=== PATIENT | female | born 2000 | race Caucasian/White ===

== ENCOUNTER → 2019-01-24 | Outpatient (CLI) | payer OTHER ==
--- NOTE | 2019-01-24 13:09 | REP ---
Right foot series: Four views. History: Mass of the right foot. Right foot pain. No comparison views. 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 This accessory ossicle measures 12 mm in greatest diameter. Overall mineralization pattern is normal. Bones, joints and soft tissues are otherwise radiographically unremarkable. 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 Otherwise negative right foot radiographs. Electronically Signed by Rocco Pringle MD 01/24/2019 01:00 P
== END ==
LOC: M LRY 12:48
PROVIDERS: ATTEND Nurse Practitioner Family
DX: Q66.81 Congenital vertical talus deformity, right foot (principal)
CPT/HCPCS: 73630; G0463

== ENCOUNTER → 2019-06-05 | Outpatient (CLI) | payer OTHER ==
[2019-06-05 17:23] LABS: BASO % 0.3 % (0.0-1.0); EOS # 0.1 10^3/uL (0.0-0.5); EOS % 0.5 % (0.0-3.0); HEMATOCRIT 35.2 % (36.0-47.0); HEMOGLOBIN 11.9 g/dl (12.0-15.5); LYMPH % 20.5 % (24.0-44.0); MEAN CORPUSCULAR HEMOGLOBIN 30.4 pg (27.0-33.0); MEAN CORPUSCULAR HGB CONC 33.8 g/dl (32.0-36.5); MONO # 0.7 10^3/uL (0.0-0.8); MONO % 7.1 % (0.0-5.0); NEUTROPHILS # 6.9 10^3/uL (1.5-8.5); NEUTROPHILS % 70.5 % (36.0-66.0); PLATELET COUNT, AUTOMATED 301 10^3/uL (150-450); RED BLOOD COUNT 3.91 10^6/uL (4.00-5.40); WHITE BLOOD COUNT 9.8 10^3/uL (4.0-10.0)
[2019-06-05 20:32] LABS: CHLAMYDIA DNA AMPLIFICATION NEGATIVE (NEGATIVE); GC DNA AMPLIFICATION NEGATIVE (NEGATIVE)
[2019-06-07 11:56] LABS: HEPATITIS C VIRUS ABY INDEX 0.1 INDEX (<0.8); HIV 1&2 SCREEN CENTAUR NEGATIVE (NEGATIVE); RUBELLA IgG QUALITATIVE IMMUNE (IMMUNE)
== END ==
LOC: M SMT 14:47
PROVIDERS: ATTEND Advanced Practice Midwife
DX: Z3A.09 9 weeks gestation of pregnancy (principal); Z34.01 Encounter for supervision of normal first pregnancy, first trimester

== ENCOUNTER → 2019-08-05 | Outpatient (CLI) | payer OTHER ==
--- NOTE | 2019-08-05 11:37 | REP ---
Clinical: Anatomical evaluation. Comparison: None . Findings: Examination demonstrates a single live intrauterine in transverse (head to maternal left) presentation. motion is identified by technologist. Placenta is noted fundal and grade zero without evidence for placenta previa or abruption. Amniotic fluid volume is normal. Cervix measures 5.6 cm in length and appears closed. No evidence for nuchal cord. Gestational age by LMP 18 weeks 3 days with JOSE ELIAS 01/03/2020 . Gestational age by current measurements 19 weeks 0 days with JOSE ELIAS 12/30/2019 . FHR equals 158 beats per minute. BPD 4.6 cm 19 weeks 5 days HC 16.1 cm 19 weeks 0 days AC 14.6 cm 19 weeks 6 days FL 2.7 cm 18 weeks 1 day HL 2.7 cm 18 weeks 3 days HC/AC ratio 1.10 Estimated weight 274 grams ( 74 percentile). Anatomical assessment demonstrates normal structures including cranium, choroid plexus, cavum, cerebellum/posterior fossa, facial features, lungs, four-chamber heart/ventricular outflow tracts, diaphragm, stomach, cord insertion/three-vessel cord, kidneys/bladder, spine, and extremities. Impression: Single live intrauterine in transverse lie demonstrating appropriate interval growth. Anatomical assessment is complete and normal. No gross abnormalities are identified. Electronically Signed by Brendon Romeo MD 08/05/2019 11:28 A
== END ==
LOC: M RAD 10:32
PROVIDERS: ATTEND Advanced Practice Midwife
DX: O32.2XX0 Maternal care for transverse and oblique lie, not applicable or unspecified (principal); Z36.89 Encounter for other specified antenatal screening; Z3A.18 18 weeks gestation of pregnancy

== ENCOUNTER → 2019-10-17 | Outpatient (CLI) | payer OTHER ==
[2019-10-17 13:53] LABS: HEMATOCRIT 34.7 % (36.0-47.0); MEAN CORPUSCULAR HEMOGLOBIN 30.6 pg (27.0-33.0); MEAN CORPUSCULAR HGB CONC 31.7 g/dl (32.0-36.5); MEAN CORPUSCULAR VOLUME 96.4 fl (80.0-96.0); PLATELET COUNT, AUTOMATED 251 10^3/uL (150-450); WHITE BLOOD COUNT 11.2 10^3/uL (4.0-10.0)
== END ==
LOC: M PLALAB 08:11
PROVIDERS: ATTEND Advanced Practice Midwife
DX: Z34.93 Encounter for supervision of normal pregnancy, unspecified, third trimester (principal)

== ENCOUNTER → 2019-12-04 | Outpatient (REF) | payer OTHER | LOC: M SFHCPLAZ 16:54 | PROVIDERS: ATTEND Specialist | DX: Z36.89 Encounter for other specified antenatal screening (principal); Z3A.00 Weeks of gestation of pregnancy not specified ==

== ENCOUNTER → 2019-12-04 | Outpatient (REF) | payer OTHER ==
[2019-12-04 13:34] LABS: ALT/SGPT 15 U/L (12-78); BILIRUBIN,TOTAL 0.2 MG/DL (0.2-1.0); CREATININE FOR GFR 0.58 MG/DL (0.55-1.30); GLOMERULAR FILTRATION RATE > 60.0 (>60); HEMATOCRIT 30.9 % (36.0-47.0); HEMOGLOBIN 10.2 g/dl (12.0-15.5); LDH LACTATE DEHYDROGENASE 131 U/L (84-246); MEAN CORPUSCULAR HEMOGLOBIN 30.3 pg (27.0-33.0); MEAN CORPUSCULAR VOLUME 91.7 fl (80.0-96.0); PLATELET COUNT, AUTOMATED 278 10^3/uL (150-450); RED BLOOD COUNT 3.37 10^6/uL (4.00-5.40); WHITE BLOOD COUNT 12.7 10^3/uL (4.0-10.0)
== END ==
LOC: M PLALAB 11:20
PROVIDERS: ATTEND Specialist
DX: Z36.89 Encounter for other specified antenatal screening (principal); Z3A.00 Weeks of gestation of pregnancy not specified

== ENCOUNTER 2019-12-14 13:01 | Inpatient (IN) | payer OTHER ==
[~2019-12-14] VITALS: Ht 157.5 cm; Wt 76.7 kg
[2019-12-14] VITALS (14 sets, daily range): BP systolic 106–129; BP diastolic 56–76
[2019-12-14] MEDS: miSOPROStol 50 MCG 1/2 TAB (S0191) SL SCH ×3 (04:15→20:25)
[2019-12-14] MEDS ORDERED: PRENTAB9 PO (13:42)
[2019-12-14] MEDS ORDERED: LACTATED RINGER'S 1000 ML IV STA (14:17)
[2019-12-14 14:46] LABS: HEMATOCRIT 31.2 % (36.0-47.0); HEMOGLOBIN 10.2 g/dl (12.0-15.5); MEAN CORPUSCULAR HEMOGLOBIN 28.9 pg (27.0-33.0); MEAN CORPUSCULAR HGB CONC 32.7 g/dl (32.0-36.5); MEAN CORPUSCULAR VOLUME 88.4 fl (80.0-96.0); PLATELET COUNT, AUTOMATED 257 10^3/uL (150-450); RED BLOOD COUNT 3.53 10^6/uL (4.00-5.40); WHITE BLOOD COUNT 10.3 10^3/uL (4.0-10.0)
[2019-12-14 15:07] LABS: ALT/SGPT 16 U/L (12-78); BILIRUBIN,TOTAL 0.3 MG/DL (0.2-1.0); CREATININE FOR GFR 0.44 MG/DL (0.55-1.30); GLOMERULAR FILTRATION RATE > 60.0 (>60); LDH LACTATE DEHYDROGENASE 143 U/L (84-246); URIC ACID 2.7 MG/DL (2.6-6.0)
[2019-12-15] VITALS (23 sets, daily range): BP systolic 102–138; BP diastolic 55–82
[2019-12-15] MEDS ORDERED: ONDANSETRON 4MG/2ML VIAL (J2405) IV ONE (15:00)
[2019-12-15 16:27] LABS: HEMATOCRIT 34.2 % (36.0-47.0); HEMOGLOBIN 11.1 g/dl (12.0-15.5); MEAN CORPUSCULAR HEMOGLOBIN 28.8 pg (27.0-33.0); MEAN CORPUSCULAR HGB CONC 32.5 g/dl (32.0-36.5); MEAN CORPUSCULAR VOLUME 88.6 fl (80.0-96.0); PLATELET COUNT, AUTOMATED 264 10^3/uL (150-450); RED BLOOD COUNT 3.86 10^6/uL (4.00-5.40); WHITE BLOOD COUNT 16.1 10^3/uL (4.0-10.0)
[2019-12-15] MEDS ORDERED: FENTANYL 2MCG/ML ROPIVACAINE 0.2% IN 0.9% NACL 100ML IVBAG As Ordered ONE (16:40)
[2019-12-15] MEDS ORDERED: ePHEDrine SULFATE 25 MG/5 ML(5MG/ML) SYRINGE IV PRN (17:45)
[2019-12-15] MEDS ORDERED: EPIDURAL COMMENT XX SCH (17:45)
[2019-12-15] MEDS ORDERED: NALOXONE INJ 0.4 MG/1 ML VIAL (J2310) IV PRN (17:45)
[2019-12-15] MEDS ORDERED: REFRIGERATOR IV KEYS XX PRN (17:45)
[2019-12-15] MEDS ORDERED: FENTANYL/ROPIVACAINE/NACL BAG 100 ML EPIDURAL SCH (17:45)
[2019-12-15] MEDS ORDERED: EPIDURAL/PCA KEYS XX PRN (17:45)
[2019-12-15] MEDS ORDERED: ONDANSETRON 4MG/2ML VIAL (J2405) IV PRN ×2 (17:45→22:00)
[2019-12-15] MEDS ORDERED: diphenhydrAMINE INJ 50MG/ML VIAL (J1200) IV PRN (17:45)
[2019-12-15] MEDS ORDERED: LACTATED RINGER'S 1000 ML IV PRN (17:45)
[2019-12-15] MEDS ORDERED: OXYTOCIN DRIP 30 UNITS in IV 1 EA IV SCH ×2 (19:30→21:49)
[2019-12-15] MEDS ORDERED: LR 1,000 ML IV SCH (21:49)
[2019-12-15] MEDS ORDERED: RHOGAM 300 MCG (1500 IU) INJ (J2790) IM SCH (22:00)
[2019-12-15] MEDS ORDERED: MEASLES,MUMPS,RUBELLA VACCINE INJ (MMR-II) (90707) SC SCH (22:00)
[2019-12-15] MEDS ORDERED: IBUPROFEN 800 MG TAB PO PRN (22:00)
[2019-12-15] MEDS ORDERED: ACETAMINOPHEN TAB 650MG DOSE (2X325MG) PO PRN (22:00)
[2019-12-15] MEDS ORDERED: PROMETHAZINE 25 MG TAB PO PRN (22:00)
[2019-12-15] MEDS ORDERED: IBUPROFEN 600 MG TAB PO PRN (22:00)
[2019-12-15] MEDS ORDERED: DOCUSATE SODIUM 100 MG CAP PO PRN (22:00)
[2019-12-15] MEDS ORDERED: DIBUCAINE 1% OINTMENT 30GM TOP PRN (22:00)
[2019-12-16 00:15] VITALS: BP 136/74
[2019-12-16 06:00] VITALS: BP 132/78
[2019-12-16] MEDS: ACETAMINOPHEN 500 MG TAB PO PRN (06:23)
[2019-12-16] MEDS: PRENATAL VITAMINS CHEWABLE TABLET PO SCH (09:43)
[2019-12-16 18:44] VITALS: BP 135/87
[2019-12-17] MEDS: ACETAMINOPHEN 500 MG TAB PO PRN (05:17)
[2019-12-17 06:00] VITALS: BP 125/82
[2019-12-17] MEDS: PRENATAL VITAMINS CHEWABLE TABLET PO SCH (07:33)
== END 2019-12-17 11:30 | disposition home or self-care (01) | DRG 807 ==
LOC: M LDI 13:01 → M OBS 12-16 00:10
PROVIDERS: ADMIT Obstetrics & Gynecology; ATTEND Obstetrics & Gynecology
PROC: 3E0DXGC Introduction of Other Therapeutic Substance into Mouth and Pharynx, External Approach (ICD-10-PCS; 2019-12-14)
PROC: 10E0XZZ Delivery of Products of Conception, External Approach (ICD-10-PCS; principal; 2019-12-15)
PROC: 0HQ9XZZ Repair Perineum Skin, External Approach (ICD-10-PCS; 2019-12-15)
DX: O14.14 Severe pre-eclampsia complicating childbirth (principal); Z37.0 Single live birth; Z3A.37 37 weeks gestation of pregnancy; O69.1XX0 Labor and delivery complicated by cord around neck, with compression, not applicable or unspecified; O70.0 First degree perineal laceration during delivery